=== PATIENT | female | born 1975 | race Native Hawaiian/Other Pacific Islander ===

== ENCOUNTER 2019-07-13 16:51 | Outpatient (CLI) | payer OTHER | END 2019-07-13 17:06 | disposition short-term general hospital (02) | LOC: AMB 16:51 | DX: S62.614A Displaced fracture of proximal phalanx of right ring finger, initial encounter for closed fracture (principal); Y92.89 Other specified places as the place of occurrence of the external cause; Y33.XXXA Other specified events, undetermined intent, initial encounter; Y93.89 Activity, other specified | CPT/HCPCS: A0425; A0429 ==

== ENCOUNTER 2019-07-13 17:08 | Emergency (ER) | payer OTHER ==
[~2019-07-13] VITALS: Ht 160 cm; Wt 77.1 kg
[2019-07-13 20:00] VITALS: BP 115/62; TEMP 98.1
== END 2019-07-13 20:00 | disposition home or self-care (01) ==
LOC: ED 17:08
PROC: 0PSTXZZ Reposition Right Finger Phalanx, External Approach (ICD-10-PCS; principal; 2019-07-13)
DX: S62.614A Displaced fracture of proximal phalanx of right ring finger, initial encounter for closed fracture (principal); W50.2XXA Accidental twist by another person, initial encounter; Y93.89 Activity, other specified; Y92.89 Other specified places as the place of occurrence of the external cause
CPT/HCPCS: 96372; 99283; J1885